=== PATIENT | female | born 1965 | race African-American/Black ===

== ENCOUNTER 2019-10-26 12:12 | Emergency (ER) | payer OTHER ==
--- NOTE | 2019-10-26 12:30 | ER Document Report ---
ED Medical Screen (RME) - General Chief Complaint: Weakness Stated Complaint: WEAKNESS Time Seen by Provider: 10/26/19 12:26 Primary Care Provider: LIEN BARNES DO [Primary Care Provider] - Follow up as needed Mode of Arrival: Wheelchair Information source: Patient Notes: 54-year-old female presents to ED for complaint of weakness nausea and dark urine as well as bilateral flank pain. She states she had surgery on her thumb 18 October. She states she took her oxycodone for the first couple days and had good relief and did not take it for couple days and then on Thursday she took the pills again without eating properly and she became nauseated. She states she has been very nauseated very weak having bilateral flank pain since Thursday night and brown urine since Thursday. Apical pulse is 123 blood pressure is 168/107 I have greeted and performed a rapid initial assessment of this patient. A comprehensive ED assessment and evaluation of the patient, analysis of test results and completion of medical decision making process will be conducted by an additional ED providers. TRAVEL OUTSIDE OF THE [place] IN LAST 30 DAYS: No - Related Data Allergies/Adverse Reactions: No Known Allergies Allergy (Verified 07/02/16 11:16) Past Medical History - Past Medical History Cardiac Medical History: Reports: Hx Hypertension Denies: Hx Coronary Artery Disease, Hx Heart Attack Pulmonary Medical History: Denies: Hx Asthma, Hx Bronchitis, Hx COPD, Hx Pneumonia Neurological Medical History: Denies: Hx Cerebrovascular Accident, Hx Seizures Musculoskeltal Medical History: Denies Hx Arthritis - Immunizations Hx Diphtheria, Pertussis, Tetanus Vaccination: No Physical Exam - Vital signs Vitals: Temp Pulse Resp BP Pulse Ox 98.3 F 123 H 18 168/107 H 94 10/26/19 12:19 10/26/19 12:19 10/26/19 12:19 10/26/19 12:19 10/26/19 12:19 Course - Vital Signs Vital signs: Temp Pulse Resp BP Pulse Ox 98.3 F 123 H 18 168/107 H 94 10/26/19 12:19 10/26/19 12:19 10/26/19 12:19 10/26/19 12:19 10/26/19 12:19 Doctor's Discharge - Discharge Referrals: LIEN BARNES DO [Primary Care Provider] - Follow up as needed
[2019-10-26] MEDS ORDERED: NORMAL SALINE 1000 ML 1,000 ML IV ONE ×3 (12:31→15:48)
[2019-10-26 13:03] LABS: ABSOLUTE BASOPHILS # (AUTO) 0.1 10^3/uL (0.0-0.2); ABSOLUTE LYMPHOCYTES (AUTO) 1.7 10^3/uL (0.5-4.7); ABSOLUTE MONOCYTES (AUTO) 1.3 10^3/uL (0.1-1.4); ABSOLUTE NEUT (AUTO) 13.8 10^3/uL (1.7-8.2); BASOPHILS % (AUTO) 0.6 % (0-2); EOSINOPHILS % (AUTO) 0.1 % (0-6); HEMATOCRIT 41.5 % (36.0-47.0); LYMPHOCYTES % (AUTO) 9.9 % (13-45); MEAN CORPUSCULAR HEMOGLOBIN 28.4 pg (27.0-33.4); MEAN CORPUSCULAR HGB CONC 33.6 g/dL (32.0-36.0); MEAN CORPUSCULAR VOLUME 85 fl (80-97); MONOCYTES % (AUTO) 7.5 % (3-13); PLATELET COUNT 209 10^3/uL (150-450); RED BLOOD COUNT 4.92 10^6/uL (3.72-5.28); RED CELL DISTRIBUTION WIDTH 13.3 % (11.5-14.0); SEGMENTED NEUTROPHILS % (AUTO) 81.9 % (42-78); TOTAL CELLS COUNTED % (AUTO) 100 %; WHITE BLOOD COUNT 16.8 10^3/uL (4.0-10.5)
[2019-10-26 13:06] LABS: APPEARANCE,URINE CLOUDY; BILIRUBIN,URINE NEGATIVE (NEGATIVE); COLOR,URINE YELLOW; GLUCOSE, URINE >=500 mg/dL (NEGATIVE); KETONES,URINE 20 mg/dL (NEGATIVE); PROTEIN,URINE 100 mg/dL (NEGATIVE); URINE SPECIFIC GRAVITY 1.018; UROBILINOGEN,URINE NEGATIVE mg/dL (<2.0)
[2019-10-26] MEDS ORDERED: INSULIN REG, HUMAN 100 UNIT/ML 3 ML VIAL (PYX) SUBCUT ONE ×2 (13:28→17:46)
--- NOTE | 2019-10-26 13:28 | RADIOLOGY REPORT (SQ) ---
EXAM DESCRIPTION: U/S RETROPERITON (RENAL/AORTA) COMPLETED DATE/TIME: 10/26/2019 1:17 pm REASON FOR STUDY: Bilateral flank pain COMPARISON: None. TECHNIQUE: Dynamic and static grayscale images acquired of the kidneys and bladder and recorded on P ACS. Additional selected color Doppler and spectral images recorded. LIMITATIONS: None. FINDINGS: RIGHT KIDNEY: Normal size measuring 10.8 cm. Normal echogenicity. No solid or suspicious m asses. Mild fullness of the renal collecting system. No caliceal dilation. No calcifications. LEFT KIDNEY: Normal size measuring 11.4 cm. Normal echogenicity. No definite solid mass. Prominent cortical bulge at the interpolar region, likely dromedary hump. No hydronephrosis. No calcifications . BLADDER: Decompressed. OTHER FINDINGS: No other significant finding. IMPRESSION: 1. Mild fullness of the right renal pelvis without caliceal dilation. 2. Cortical bulge along the left interpolar region, possibly dromedary hump. Multiphase CT or MR sh ould be considered confirmation. TECHNICAL DOCUMENTATION: JOB ID: [id number] 2010 [employer]- All Rights Reserved Reading location - IP/workstation name: [email or web address]
--- NOTE | 2019-10-26 13:29 | ER Document Report ---
ED General - General Chief Complaint: General Weakness Stated Complaint: WEAKNESS Time Seen by Provider: 10/26/19 12:26 Primary Care Provider: LIEN BARNES DO [ACTIVE STAFF] - Follow up as needed Mode of Arrival: Wheelchair Notes: CHIEF COMPLAINT: Nausea, weakness for 2 days HPI: 54-year-old female presenting to the emergency department complaining of nausea and weakness over the last 2 days. Patient is an insulin-dependent diabetic. Patient takes 30 units of Lantus at night and states she has been taking her insulin. She had surgery a week ago on her right thumb. Has not had fever. Reports darkening of her urine today with some bilateral flank pain. ROS: See HPI - all other systems were reviewed and are otherwise negative Constitutional: no fever Eyes: no drainage, no blurred vision ENT: no runny nose, no sore throat Cardiovascular: no chest pain Resp: no SOB, no cough GI: no vomiting, no diarrhea, no abdominal pain, positive nausea, positive flank pain : no dysuria, positive dark urine Integumentary: no rash Allergy: no hives Musculoskeletal: no extremity pain or swelling Neurological: no numbness/tingling, positive generalized, mild distress secondary to discomfort weakness MEDICATIONS: I agree with the patient medications as charted by the RN. ALLERGIES: I agree with the allergies as charted by the RN. PAST MEDICAL HISTORY/PAST SURGICAL HISTORY: Reviewed and agree as charted by RN. SOCIAL HISTORY: Reviewed and agree as charted by RN. FAMILY HISTORY: No significant familial comorbid conditions directly related to patient complaint EXAM: Reviewed vital signs as charted by RN. CONSTITUTIONAL: Alert and oriented and responds appropriately to questions. Well-appearing; well-nourished HEAD: Normocephalic; atraumatic EYES: PERRL; Conjunctivae clear, sclerae non-icteric ENT: normal nose; no rhinorrhea; moist mucous membranes; pharynx without lesions noted, no uvula edema or deviation, no tonsillar hypertrophy, phonation normal NECK: Supple without meningismus; non-tender; no cervical lymphadenopathy, no masses CARD: Tachycardic; no murmurs, no clicks, no rubs, no gallops; symmetric distal pulses RESP: Normal chest excursion without splinting or tachypnea; breath sounds clear and equal bilaterally; no wheezes, no rhonchi, no rales, pulse oximetry 98% on room air not hypoxic ABD/GI: Normal bowel sounds; non-distended; soft, non-tender, no rebound, no guarding; no palpable organomegaly or masses. Mild tenderness of the bilateral flanks is noted on palpation BACK: The back appears normal and is non-tender to palpation, there is no CVA tenderness EXT: Normal ROM in all joints; non-tender to palpation; no cyanosis, no effusions, no edema SKIN: Normal color for age and race; warm; dry; good turgor; no acute lesions noted NEURO: Moves all extremities equally; Motor and sensory function intact PSYCH: The patient's mood and manner are appropriate. Grooming and personal hygiene are appropriate. MDM: 54-year-old diabetic female with nausea generalized weakness. Initial lab work through the triage process. Patient is noted to be hyperglycemic with a blood glucose greater than 500. She is noted to have a UTI. We will add additional IV fluids, insulin, antibiotics, awaiting lab results currently to evaluate possible DKA TRAVEL OUTSIDE OF THE [place] IN LAST 30 DAYS: No - Related Data Allergies/Adverse Reactions: No Known Allergies Allergy (Verified 07/02/16 11:16) Home Medications: percocet. janumet. lisinopril. vitamin c. iron Past Medical History - General Information source: Patient - Social History Smoking Status: Never Smoker Chew tobacco use (# tins/day): No Frequency of alcohol use: None Drug Abuse: None Family History: Reviewed & Not Pertinent Patient has suicidal ideation: No Patient has homicidal ideation: No - Past Medical History Cardiac Medical History: Reports: Hx Hypertension Denies: Hx Coronary Artery Disease, Hx Heart Attack Pulmonary Medical History: Denies: Hx Asthma, Hx Bronchitis, Hx COPD, Hx Pneumonia Neurological Medical History: Denies: Hx Cerebrovascular Accident, Hx Seizures Musculoskeletal Medical History: Denies Hx Arthritis - Immunizations Hx Diphtheria, Pertussis, Tetanus Vaccination: No Physical Exam - Vital signs Vitals: Temp Pulse Resp BP Pulse Ox 98.3 F 123 H 18 168/107 H 94 10/26/19 12:19 10/26/19 12:19 10/26/19 12:19 10/26/19 12:19 10/26/19 12:19 Course - Re-evaluation Re-evalutation: 10/26/19 15:47 Patient is having some chills. She does have a leukocytosis. Does have a UTI, ultrasound renal suggests possible early pyelonephritis. We will continue to hydrate patient, she has received antibiotics, will add a dose of Toradol. Plan to reassess after IV fluids finish 10/26/19 17:59 I discussed the evaluation results at length with the patient. Her heart rate is down to 118. She has been given 3 liters of fluids. Her blood sugar is 345 we will give additional insulin. She is not in DKA. She has minimal discomfort and does not request pain medications. We did give patient Rocephin I will start her on Levaquin for the UTI. We discussed admission versus discharge. Patient indicates that her preference is to be discharged at this time. She is aware that if she has onset of fever vomiting or worsening pain in the flank she should return for reevaluation of symptoms and this may require admission to the hospital. Patient has an appointment with her orthopedic tomorrow and states she will also call and follow-up with her PCP tomorrow. As she does have close follow-up I do believe it is not unreasonable to discharge at this time 10/26/19 18:02 - Vital Signs Vital signs: Temp Pulse Resp BP Pulse Ox 98.1 F 118 H 16 135/81 H 97 10/26/19 17:37 10/26/19 17:37 10/26/19 17:37 10/26/19 17:37 10/26/19 17:37 - Laboratory Result Diagrams: 10/26/19 12:54 10/26/19 12:54 Laboratory results interpreted by me: 10/26/19 10/26/19 10/26/19 12:47 12:54 12:54 WBC 16.8 H Lymph % (Auto) 9.9 L Absolute Neuts (auto) 13.8 H Seg Neutrophils % 81.9 H Sodium 134.0 L Chloride 91 L BUN 23 H Glucose 588 H* POC Glucose 543 H* Alkaline Phosphatase 129 H Creatine Kinase 24 L Urine Protein Urine Glucose (UA) Urine Ketones Urine Blood Leukocyte Esterase Rfl Urine Ascorbic Acid 10/26/19 10/26/19 12:54 17:32 WBC Lymph % (Auto) Absolute Neuts (auto) Seg Neutrophils % Sodium Chloride BUN Glucose POC Glucose 345 H Alkaline Phosphatase Creatine Kinase Urine Protein 100 H Urine Glucose (UA) >=500 H Urine Ketones 20 H Urine Blood LARGE H Leukocyte Esterase Rfl LARGE H Urine Ascorbic Acid 40 H Discharge - Discharge Clinical Impression: Pyelonephritis, Hyperglycemia Condition: Stable Disposition: HOME, SELF-CARE Additional Instructions: Make sure you hydrate well at home. Take the Levaquin as prescribed. Follow-up closely with your primary care provider regarding your insulin dosing and recheck and reevaluation. If you develop vomiting, worsening flank pain or onset of fevers despite antibiotics return for reevaluation as discussed. Prescriptions: Levofloxacin [Levaquin 750 mg Tablet] 750 mg PO DAILY #10 tablet Referrals: LIEN BARNES DO [ACTIVE STAFF] - Follow up as needed
[2019-10-26 13:30] LABS: ALBUMIN 4.2 g/dL (3.5-5.0); ALKALINE PHOSPHATASE 129 U/L (38-126); ANION GAP 18 (5-19); ASPARTATE AMINO TRANSFERASE 24 U/L (14-36); BILIRUBIN,DIRECT 0.3 mg/dL (0.0-0.4); BILIRUBIN,TOTAL 0.9 mg/dL (0.2-1.3); BLOOD UREA NITROGEN 23 mg/dL (7-20); CALCIUM 9.7 mg/dL (8.4-10.2); CARBON DIOXIDE 25 mmol/L (22-30); CHLORIDE 91 mmol/L (98-107); CREATINE KINASE 24 U/L (30-135); POTASSIUM 4.7 mmol/L (3.6-5.0); TOTAL PROTEIN 7.1 g/dL (6.3-8.2)
[2019-10-26 13:39] LABS: GLUCOSE 588 mg/dL (75-110)
[2019-10-26 13:43] LABS: VENOUS BLOOD BASE EXCESS -0.6 mmol/L; VENOUS BLOOD HCO3 24.9 mmol/L (20-32); VENOUS BLOOD PCO2 44.4 mmHg (35-63); VENOUS BLOOD PH 7.37 (7.30-7.42)
[2019-10-26] MEDS ORDERED: CEFTRIAXONE 1 GM/D5W RTU 1 GM/50 ML RTUPB IV ONE (14:00)
[2019-10-26] MEDS ORDERED: KETOROLAC TROMETHAMINE INJ/PF 30 MG/1 ML SDV IV ONE (15:48)
[2019-10-26 17:40] VITALS: BP 135/81
[2019-10-26] MEDS ORDERED: LEVOFLOXACIN 750 MG TABLET PO ONE (18:02)
== END 2019-10-26 18:33 | disposition home or self-care (01) ==
LOC: ER 12:12
DX: N10 Acute pyelonephritis (principal); E11.65 Type 2 diabetes mellitus with hyperglycemia; R53.1 Weakness; R11.0 Nausea; R00.0 Tachycardia, unspecified; Z79.4 Long term (current) use of insulin; Z79.899 Other long term (current) drug therapy; R68.83 Chills (without fever); Z98.890 Other specified postprocedural states
CPT/HCPCS: 99285; 96361; 96375; 96365; 36415; 87086; 82962; 82550; 84703; 85025; 87088; 80053; 81001; 82803; 76770; J1885; J1815; J7030; J0696; 87186